=== PATIENT | male | born 1950 | race Caucasian/White ===

== ENCOUNTER 2020-11-06 15:59 | Emergency (ER) | payer MEDICARE ==
[2020-11-06] MEDS ORDERED: Amlodipine 5 MG TAB ONE (17:10)
== END 2020-11-06 17:55 | disposition home or self-care (01) ==
LOC: BURERS 15:59
DX: S01.81XA Laceration without foreign body of other part of head, initial encounter (principal); I10 Essential (primary) hypertension; Z87.891 Personal history of nicotine dependence; Z79.899 Other long term (current) drug therapy; W19.XXXA Unspecified fall, initial encounter
CPT/HCPCS: 12011